=== PATIENT | male | born 1980 | race Hispanic/Latino ===

== ENCOUNTER 2018-11-22 06:13 | Day surgery (SDC) | payer OTHER ==
[~2018-11-22] VITALS: Ht 165.1 cm; Wt 127.0 kg
[~2018-11-22 06:13] MED LIST: CEPH500B PO; EXCEDRIN; HYDR-4457 PO; METF-444 PO; METH750T3 PO; NAPR-1023 PO; OMEP-50 PO; PARO40TA72 PO; PROP20TA7 PO; SILDENAFIL; SODIUM CHLORIDE 0.9% 1000ML 1,000 ML IV ONE; TRAZ-185 PO; [UNRECOGNIZED DRUG - OTHER]
[2018-11-22 06:50] VITALS: BP 144/98
[2018-11-22 08:55] VITALS: BP 126/66
[2018-11-22 09:01] VITALS: BP 140/58
[2018-11-22 09:06] VITALS: BP 131/68
[2018-11-22 09:10] VITALS: BP 130/71
[2018-11-22 09:15] VITALS: BP 134/75
== END 2018-11-22 09:20 | disposition home or self-care (01) ==
LOC: MERGE 06:13 → DAH 06:13 → ENDO 06:13
PROVIDERS: ATTEND Internal Medicine Gastroenterology
DX: R12 Heartburn (principal); K21.0 Gastro-esophageal reflux disease with esophagitis; K29.50 Unspecified chronic gastritis without bleeding; I10 Essential (primary) hypertension; E11.9 Type 2 diabetes mellitus without complications; F43.10 Post-traumatic stress disorder, unspecified; G47.00 Insomnia, unspecified; E78.5 Hyperlipidemia, unspecified; E66.09 Other obesity due to excess calories; Z68.42 Body mass index [BMI] 45.0-49.9, adult; Z79.899 Other long term (current) drug therapy
CPT/HCPCS: 43239; 82948 ×2; 88305; J7030